=== PATIENT | female | born 1990 | race Caucasian/White ===

== ENCOUNTER 2018-03-04 22:28 | Emergency (ER) | payer SELFPAY ==
[~2018-03-04] VITALS: Ht 165.1 cm; Wt 81.6 kg
[2018-03-04 22:30] VITALS: BP_SYST 148
[2018-03-04] MEDS ORDERED: IBUPROFEN 800 MG TABLET PO ONE (22:45)
[2018-03-04 23:50] VITALS: BP_SYST 140
== END 2018-03-04 23:50 | disposition home or self-care (01) ==
LOC: SED 22:28
DX: R07.89 Other chest pain (principal); F41.9 Anxiety disorder, unspecified
CPT/HCPCS: 71045; 93005; 99284